=== PATIENT | male | born 1970 | race Caucasian/White ===

== ENCOUNTER → 2018-07-23 | Outpatient (CLI) | payer OTHER ==
--- NOTE | 2018-07-23 20:34 | CT ---
EXAMINATION TYPE: CT abdomen pelvis w con DATE OF EXAM: 07/23/2018 COMPARISON: 05/11/2016 HISTORY: Periumbilical pain and history of diverticulitis. CT DLP: 448.4 mGycm Automated exposure control for dose reduction was used. TECHNIQUE: Helical acquisition of images was performed from the lung bases through the pelvis. CONTRAST: Performed with Oral Contrast and with IV Contrast, patient injected with 100ml mL of Isovue 300. FINDINGS: Lung bases are clear. There is no pleural effusion. Heart size is normal. There is no pericardial eff usion. Liver spleen pancreas gallbladder appear normal. Bile ducts are not dilated. Stomach appears normal. There is no adrenal mass. Kidneys show satisfactory contrast opacification. There is no hydronephrosi s. Ureters are not dilated. There is no retroperitoneal adenopathy. Bladder distends smoothly. There is no inguinal hernia. There is no free fluid in the pelvis. There is some fat stranding around the mid sigmoid colon with mild wall thickening. The segment invol ar measures 4 cm. The small bowel appears normal. There is no evidence of a bowel obstruction. Appen matt is seen and is not enlarged. The lumbar spine is intact. I see no bony destructive process. Vertebra have normal alignment. There is no evidence of free air. IMPRESSION: THERE ARE INFLAMMATORY CHANGES AROUND THE MID SIGMOID COLON CONSISTENT WITH ACUTE DIVERTICULITIS. THI S IS A CHANGE COMPARED TO OLD EXAM. THERE IS CLEARING OF THE CHANGES OF DIFFUSE COLITIS EVIDENT ON THE OLD CT SCAN.
== END | disposition home or self-care (01) ==
LOC: RADCTMAIN 18:14
PROVIDERS: ATTEND Family Medicine
DX: K52.9 Noninfective gastroenteritis and colitis, unspecified (principal)
CPT/HCPCS: 74177; Q9967

== ENCOUNTER → 2020-10-14 | Outpatient (CLI) | payer OTHER ==
--- NOTE | 2020-10-15 11:47 | CT ---
"EXAMINATION TYPE: CT abdomen pelvis w con DATE OF EXAM: 10/14/2020 COMPARISON: 07/23/2018 INDICATION: LLQ pain, hx of diverticulitis DLP: 931 mGycm, Automated exposure control for dose reduction was used. CONTRAST: 100 mL of Isovue 300. Study performed with Oral Contrast TECHNIQUE: Axial images were obtained from above the diaphragm to the pubic rami in the axial plane a t 5 mm thick sections. Reconstructed images are reviewed on the computer in the coronal plane. FINDINGS: Limited CT sections are obtained the lung bases. There are patchy infiltrates within the lung bases which are nonspecific. Correlate for atypical pneumonia. Other etiologies including neoplasm are not excluded. CT ABDOMEN: Liver: Normal Spleen: Normal Pancreas: Normal Adrenal glands: The adrenal glands are normal. Gallbladder: Normal Kidneys: No masses are evident. No hydronephrosis is present. No cysts are present. Delayed images were obtained through the kidneys, which remain unremarkable. Aorta: Normal Inferior vena cava: Normal. CT PELVIS: There is mild diffuse thickening of the descending colon sigmoid colon junction. A few diverticuli ar e present. Mild inflammatory changes adjacent. Correlate for mild diverticulitis. Underlying neoplasm could be within the differential. Follow-up is recommended. No free air is evident. No abscess forma tion is evident. There are loops of bowel which are incompletely distended or lack oral contrast limi ting their evaluation. Appendix: Normal as visualized. Urinary bladder: Normal. Genitourinary structures: Prostate appears normal Osseous structures: No suspicious lytic or sclerotic lesions. IMPRESSIONS: 1. Thickening through the descending colon sigmoid colon junction with a few diverticuli and mild ad jacent inflammatory change. Correlate for mild diverticulitis. Colitis could be considered within the differential. Neoplasm is not excluded. Follow-up is recommended. 2. Mild patchy infiltrates at the lung bases. Consider atypical pneumonia. A Yellow level critical message alert has been initiated for Atiya Tom DO via the [employer] 36 0 | Critical Results System on 10/15/2020 11:44 AM. This message alert has been sent to Atiya Tom DO via the preferences provided by the clinician for the receipt of Radiology Critical Findings. Fl ssage ID [id number]."
== END | disposition home or self-care (01) ==
LOC: RADCTMAIN 13:56
PROVIDERS: ATTEND Family Medicine
DX: K57.30 Diverticulosis of large intestine without perforation or abscess without bleeding (principal); R91.8 Other nonspecific abnormal finding of lung field
CPT/HCPCS: 74177; Q9967

== ENCOUNTER 2022-04-25 08:55 | Emergency (ER) | payer OTHER ==
[2022-04-25 09:19] VITALS: BP 119/75; PULSE 69; RESP 16; TEMP 98.1
[2022-04-25] MEDS ORDERED: SODIUM CHLORIDE 0.9% 1,000 ML IV STA (10:27)
--- NOTE | 2022-04-25 10:29 | ED ---
Abdominal Pain HPI - General Chief Complaint: Abdominal Pain Stated Complaint: diarrhea Time Seen by Provider: 04/25/22 09:58 Source: patient, RN notes reviewed Mode of arrival: ambulatory Limitations: no limitations - History of Present Illness Initial Comments: This is a 52-year-old male who presents to the emergency department with abdominal pain and diarrhea. States he was just diagnosed with diverticulitis and placed on a ten-day course of Augmentin. He initially had symptoms of left lower quadrant pain, which she states have resolved. However, he is on his last day of taking the Augmentin, and over the last couple of days, he has noticed d iarrhea and excessive gas. Denies any blood in his stool or nausea/vomiting. States that the last time this happened, he was diagnosed with C. diff, and symptoms feel similar in terms of the diarrhea, however this time the pain is primarily around the anus. He did bring a stool sample with him for evaluation. He has been eating probiotic yogurt on a very regular basis since starting the Augmentin in an attempt to avoid another C. diff infection. He does not believe the C. diff infection was caused by Augmentin the last time this happened. Denies any fevers, chills, sore throat, cough, dyspnea, chest pain, palpitations, nausea, vomiting, back pain, or headaches. MD Complaint: abdominal pain Location: diffuse Quality: cramping Associated Symptoms: diarrhea - Related Data Home Medications Medication Instructions Recorded Confirmed metHOTREXate sodium [Methotrexate] 17.5 mg PO MO 05/11/16 05/11/16 Previous Rx's Medication Instructions Recorded Vancomycin Oral Solution 250 mg PO Q6HR 14 Days ml 05/13/16 metroNIDAZOLE [Flagyl] 500 mg PO TID 14 Days tab 05/13/16 HYDROcodone/APAP 5-325MG [[place] 1 tab PO Q6HR PRN 3 Days #12 tab 04/25/22 5-325] Hydrocortisone Acetate [Anusol-Hc] 25 mg RECTAL BID PRN #20 suppositor 04/25/22 Vancomycin 125 mg PO Q6H 10 Days #40 capsule 04/25/22 Allergies Allergy/AdvReac Type Severity Reaction Status Date / Time No Known Allergies Allergy Verified 04/25/22 09:19 Review of Systems ROS Statement: Those systems with pertinent positive or pertinent negative responses have been documented in the HPI. ROS Other: All systems not noted in ROS Statement are negative. Past Medical History Past Medical History: Skin Disorder Additional Past Medical History / Comment(s): psorasis, diverticulosis, colitis History of Any Multi-Drug Resistant Organisms: None Reported Additional Past Surgical History / Comment(s): cyst removed from wrist and spine Past Anesthesia/Blood Transfusion Reactions: No Reported Reaction Past Psychological History: No Psychological Hx Reported Smoking Status: Never smoker Past Alcohol Use History: Occasional Past Drug Use History: None Reported - Past Family History Father Family Medical History: Cancer, Hyperlipidemia, Hypertension Additional Family Medical History / Comment(s): Father had colon cancer with resection. He is 80 yrs old. Mother Family Medical History: Cancer, Coronary Artery Disease (CAD), Hyperlipidemia Additional Family Medical History / Comment(s): Mother had breast cancer. She has cardiac stents. She had a bowel infection requiring resection. she is 78yrs old. General Exam Limitations: no limitations General appearance: alert, in no apparent distress Head exam: Present: atraumatic, normocephalic, normal inspection Respiratory exam: Present: normal lung sounds bilaterally. Absent: respiratory distress, wheezes, rales, rhonchi, stridor Cardiovascular Exam: Present: regular rate, normal rhythm, normal heart sounds. Absent: systolic murmur, diastolic murmur, rubs, gallop, clicks GI/Abdominal exam: Present: soft, normal bowel sounds. Absent: distended, tenderness, guarding, rebound, rigid Neurological exam: Present: alert, oriented X3, CN II-XII intact Psychiatric exam: Present: normal affect, normal mood Skin exam: Present: warm, dry, intact, normal color. Absent: rash Course Vital Signs 04/25/22 09:17 Temperature 98.1 F Pulse Rate 69 Respiratory 16 Rate Blood Pressure 119/75 O2 Sat by Pulse 97 Oximetry Medical Decision Making - Medical Decision Making This is a 52-year-old male who presents to the emergency department with ab dominal pain and diarrhea. Patient's lab work was nonactionable. He did test postive for c. diff. He was given the option of admission vs discharge home, as his lab work does not reveal any significant abnormalities to suggest a complicated course, necessitating the patient's admission. He requests discharge home to try managing his symptoms on an outpatient basis. 10 day course of oral vancomycin provided, as well as hydrocortisone suppositories, which he states were beneficial last time he had this. He was also given a three-day course of [place] for severe pain. Advised to take this sparingly. Instructed him to practice good hand hygiene and to use a separate bathroom from his and other guests. Instructed him to continue taking the pre and probiotics and to add soluble fiber to his diet as well. Strict return parameters discussed, in that if he worsens or otherwise does not improve, he should return for inpatient management. Return precautions reviewed in depth, the patient is instructed to return to the emergency department with any new, worsening, or concerning symptoms. Patient verbalized understanding. This case was discussed in detail with the attending ED physician. Presentation, findings, and treatment plan discussed in detail as well. - Lab Data Result diagrams: 04/25/22 10:57 04/25/22 10:57 Lab Results 04/25/22 04/25/22 04/25/22 Range/Units 10:57 10:57 10:57 WBC 9.7 (3.8-10.6) k/uL RBC 4.89 (4.30-5.90) m/uL Hgb 15.9 (13.0-17.5) gm/dL Hct 46.2 (39.0-53.0) % MCV 94.5 (80.0-100.0) fL MCH 32.5 (25.0-35.0) pg MCHC 34.4 (31.0-37.0) g/dL RDW 13.0 (11.5-15.5) % Plt Count 250 (150-450) k/uL MPV 7.9 Neutrophils % 81 % Lymphocytes % 11 % Monocytes % 5 % Eosinophils % 1 % Basophils % 0 % Neutrophils # 7.9 H (1.3-7.7) k/uL Lymphocytes # 1.0 (1.0-4.8) k/uL Monocytes # 0.5 (0-1.0) k/uL Eosinophils # 0.1 (0-0.7) k/uL Basophils # 0.0 (0-0.2) k/uL Sodium 138 (137-145) mmol/L Potassium 4.1 (3.5-5.1) mmol/L Chloride 102 (98-107) mmol/L Carbon Dioxide 26 (22-30) mmol/L Anion Gap 10 mmol/L BUN 16 (9-20) mg/dL Creatinine 0.83 (0.66-1.25) mg/dL Est GFR (CKD-EPI)AfAm >90 (>60 ml/min/1.73 sqM) Est GFR (CKD-EPI)NonAf >90 (>60 ml/min/1.73 sqM) Glucose 95 (74-99) mg/dL Plasma Lactic Acid Goyo (0.7-2.0) mmol/L Calcium 9.2 (8.4-10.2) mg/dL Total Bilirubin 0.8 (0.2-1.3) mg/dL AST 28 (17-59) U/L ALT 26 (4-49) U/L Alkaline Phosphatase 75 (38-126) U/L Troponin I (0.000-0.034) ng/mL Total Protein 7.5 (6.3-8.2) g/dL Albumin 4.7 (3.5-5.0) g/dL Amylase 111 H (30-110) U/L Lipase 73 (23-300) U/L Urine Color Light Yellow Urine Appearance Clear (Clear) Urine pH 6.0 (5.0-8.0) Ur Specific [place] 1.013 (1.001-1.035) Urine Protein Negative (Negative) Urine Glucose (UA) Negative (Negative) Urine Ketones Negative (Negative) Urine Blood Small H (Negative) Urine Nitrite Negative (Negative) Urine Bilirubin Negative (Negative) Urine Urobilinogen <2.0 (<2.0) mg/dL Ur Leukocyte Esterase Negative (Negative) Urine RBC <1 (0-5) /hpf Urine WBC <1 (0-5) /hpf Urine Mucus Rare H (None) /hpf C. difficile (EIA) Intrp (Negative) 04/25/22 04/25/22 04/25/22 Range/Units 10:57 10:57 11:00 WBC (3.8-10.6) k/uL RBC (4.30-5.90) m/uL Hgb (13.0-17.5) gm/dL Hct (39.0-53.0) % MCV (80.0-100.0) fL MCH (25.0-35.0) pg MCHC (31.0-37.0) g/dL RDW (11.5-15.5) % Plt Count (150-450) k/uL MPV Neutrophils % % Lymphocytes % % Monocytes % % Eosinophils % % Basophils % % Neutrophils # (1.3-7.7) k/uL Lymphocytes # (1.0-4.8) k/uL Monocytes # (0-1.0) k/uL Eosinophils # (0-0.7) k/uL Basophils # (0-0.2) k/uL Sodium (137-145) mmol/L Potassium (3.5-5.1) mmol/L Chloride (98-107) mmol/L Carbon Dioxide (22-30) mmol/L Anion Gap mmol/L BUN (9-20) mg/dL Creatinine (0.66-1.25) mg/dL Est GFR (CKD-EPI)AfAm (>60 ml/min/1.73 sqM) Est GFR (CKD-EPI)NonAf (>60 ml/min/1.73 sqM) Glucose (74-99) mg/dL Plasma Lactic Acid Goyo 0.7 (0.7-2.0) mmol/L Calcium (8.4-10.2) mg/dL Total Bilirubin (0.2-1.3) mg/dL AST (17-59) U/L ALT (4-49) U/L Alkaline Phosphatase (38-126) U/L Troponin I <0.012 (0.000-0.034) ng/mL Total Protein (6.3-8.2) g/dL Albumin (3.5-5.0) g/dL Amylase (30-110) U/L Lipase (23-300) U/L Urine Color Urine Appearance (Clear) Urine pH (5.0-8.0) Ur Specific [place] (1.001-1.035) Urine Protein (Negative) Urine Glucose (UA) (Negative) Urine Ketones (Negative) Urine Blood (Negative) Urine Nitrite (Negative) Urine Bilirubin (Negative) Urine Urobilinogen (<2.0) mg/dL Ur Leukocyte Esterase (Negative) Urine RBC (0-5) /hpf Urine WBC (0-5) /hpf Urine Mucus (None) /hpf C. difficile (EIA) Intrp Positive A (Negative) Disposition Clinical Impression: C. difficile colitis Disposition: HOME SELF-CARE Instructions (If sedation given, give patient instructions): C. Diff (Clostridioides Difficile) Infection (ED), C. Diff (Clostridioides Difficile) Infection (DC) Additional Instructions: Return to the emergency department with any new, worsening, or concerning symptoms. Take the antibiotic twice daily for 10 days. Use the suppositories twice daily as needed, and take the pain medication every 6 hours as needed for pain. Practice good hand hygiene and use a separate bathroom from your family and guests. You can also try eating soluble fiber to help you clear the infection faster. Prescriptions: Hydrocortisone Acetate [Anusol-Hc] 25 mg RECTAL BID PRN #20 suppositor PRN Reason: Pain HYDROcodone/APAP 5-325MG [[place] 5-325] 1 tab PO Q6HR PRN 3 Days #12 tab PRN Reason: Pain Vancomycin 125 mg PO Q6H 10 Days #40 capsule Is patient prescribed a controlled substance at d/c from ED?: Yes When asked, does pt state using other controlled substances?: No If prescribed controlled substance>3 days was MAPS reviewed?: Prescribed <3 Days Referrals: Atiya Tom DO [Primary Care Provider] - 1-2 days
[2022-04-25 11:28] LABS: Appearance,Urine Clear (Clear); Bilirubin,Urine Negative (Negative); Blood,Urine Small (Negative); Color,Urine Light Yellow; Glucose,Urine (UA) Negative (Negative); Ketones,Urine Negative (Negative); Leukocyte Esterase,Urine Negative (Negative); Mucus,Urine Rare /hpf; Nitrite,Urine Negative (Negative); Protein,Urine Negative (Negative); RBC,Urine <1 /hpf (0-5); Specific Gravity,Urine 1.013 (1.001-1.035); Urobilinogen,Urine <2.0 mg/dL (<2.0); WBC,Urine <1 /hpf (0-5)
[2022-04-25 11:29] LABS: Basophils % (A) 0 %; Eosinophils # (A) 0.1 k/uL (0-0.7); Eosinophils % (A) 1 %; HCT 46.2 % (39.0-53.0); HGB 15.9 gm/dL (13.0-17.5); Lymphocytes % (A) 11 %; MCH 32.5 pg (25.0-35.0); MCHC 34.4 g/dL (31.0-37.0); MCV 94.5 fL (80.0-100.0); Mean Platelet Volume 7.9; Monocytes # (A) 0.5 k/uL (0-1.0); Monocytes % (A) 5 %; Neutrophils # (A) 7.9 k/uL (1.3-7.7); Neutrophils % (A) 81 %; Platelet Count 250 k/uL (150-450); RBC 4.89 m/uL (4.30-5.90); WBC 9.7 k/uL (3.8-10.6)
[2022-04-25 11:38] LABS: ALT 26 U/L (4-49); AST 28 U/L (17-59); African American GFR (CKD) >90 (>60 ml/min/1.73 sqM); Albumin 4.7 g/dL (3.5-5.0); Alkaline Phosphatase 75 U/L (38-126); Amylase 111 U/L (30-110); Anion Gap 10 mmol/L; Blood Urea Nitrogen 16 mg/dL (9-20); Calcium 9.2 mg/dL (8.4-10.2); Carbon Dioxide 26 mmol/L (22-30); Chloride 102 mmol/L (98-107); Glucose 95 mg/dL (74-99); Lipase 73 U/L (23-300); Non-African American GFR(CKD) >90 (>60 ml/min/1.73 sqM); Potassium 4.1 mmol/L (3.5-5.1); Sodium 138 mmol/L (137-145); Total Bilirubin 0.8 mg/dL (0.2-1.3); Total Protein 7.5 g/dL (6.3-8.2)
== END 2022-04-25 15:43 | disposition home or self-care (01) ==
LOC: EC 08:55
DX: A04.72 Enterocolitis due to Clostridium difficile, not specified as recurrent (principal)
CPT/HCPCS: 36415; 80053; 81001; 82150; 83605; 83690; 83993; 84484; 85025; 87045; 87046; 87324; 96360; 99284